=== PATIENT | male | born 1970 | race Caucasian/White ===

== ENCOUNTER 2017-02-17 02:01 | Inpatient (IN) | payer MEDICARE ==
--- NOTE | ~2017-02-17 | DS ---
Discharge Summary [id number] [place]. [address] NAME: GILBERTO CARMONA : [birth year] STATUS : DIS IN PAT#: [id number] AGE: 46 ADM/REG DATE : 02/17/17 MR#: [id number] REPORT SERV DATE: 02/23/17 DICTATED BY: TANA SANTACRUZ DATE: 02/22/17 REPORT STATUS : Draft TRANSCRIBED BY: JOLLY DATE: 02/22/17 ADMISSION DATE: 02/17/2017 DISCHARGE DATE: 02/22/2017 NOTE. DATE OF : 02/22/2017. INDICATION FOR HOSPITALIZATION: Shortness of breath. DISCHARGE DIAGNOSES: 1. Acute hypoxemic respiratory failure. 2. Bilateral pleural effusions with new left pleural effusion. 3. End-stage renal disease, dialyzing Thursday, , and Thursday at [facility]. 4. Type 2 diabetes mellitus. 5. Status post decortication and VATS procedure on left lung with chest tube drainage. 6. Recent right chest tube drainage. 7. Cardiac arrest with induction of analgesics for chest tube. 8. History of hypertension. 9. Hypothyroidism. 10.Dyslipidemia. 11.Psoriasis. 12.Coronary artery disease. 13.Peripheral neuropathy. 14.Remote coronary artery bypass grafting. 15.Remote left eye enucleation. 16.Encephalopathy. HOSPITAL COURSE: Mr. Carmona was a 46-year-old male with multiple medical problems, dialyzing Thursday, , and Thursday at [facility]. 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 He apparently went to dialysis on Thursday of last week, but missed subsequent treatments. He was noted to be hypoxemic on his ABG with bilateral pleural effusions and pulmonary edema. He was admitted for further evaluation. He underwent acute hemodialysis with aggressive ultrafiltration at time of admission. He seemed to improve slightly with this intervention. He was subsequently seen by Pulmonary to evaluate the new onset right-sided pleural effusion. He previously had VATS procedure for left pleural effusion and talc pleurodesis for the chylothorax. He was felt to need drainage of the right pleural effusion and it was elected to perform chest tube insertion by Dr. Putnam. At the time of the procedure, he did have a period of asystole and underwent approximately 30 to 60 seconds of a code procedure and was resuscitated. He was monitored in the unit for two days, then went to the floor with this. He became more withdrawing and less interactive. Discussion was had with his who indicates that she had previously discussed things with her and wanted to have no aggressive care. She felt that he was dying. Discharge Summary [address] [address] NAME: GILBERTO CARMONA : [birth year] STATUS : DIS IN PAT#: [id number] AGE: 46 ADM/REG DATE : 02/17/17 MR#: [id number] REPORT SERV DATE: 02/23/17 DICTATED BY: TANA SANTACRUZ DATE: 02/22/17 REPORT STATUS : Draft TRANSCRIBED BY: JOLLY DATE: 02/22/17 The patient was seen by Neurology on 02/21/2017 and this was to assess his worsening mental status. ABG was performed with pO2 of less than 60 and a pCO2 of 58. The patient was also episodically hypoglycemic. He did not eat and was receiving no pain medications. He would arouse, but there was no other activity. Following discussion with his , he was made a DNR. He further declined and on 02/22/2017. DICTATED BY: Owen Kline/JOLLY Tana Santacruz M.D. / [id number] CC: Tim Diana M.D.
--- NOTE | ~2017-02-17 | EGD ---
EGD REPORT [facility] [address] [address] NAME: MIGUEL CARMONA : 68 STATUS : DIS IN PAT#: [id number] AGE: 46 ADM/REG DATE : 02/17/17 MR#: [id number] REPORT SERV DATE: 03/25/17 DICTATED BY: LAKEISHA MARTINEZ DATE: 03/25/17 REPORT STATUS : Draft TRANSCRIBED BY: [facility] DATE: 03/25/17 Pulmonology Patient Name: Miguel Carmona Procedure Date: 02/19/2017 3:17 PM Date of : 1970 Attending MD: NADIA MARTINEZ MD Procedure Date No Time: 02/19/2017 Procedure: Chest Tube Placement Indications: Large right sided pleural effusion Providers: NADIA MARTINEZ MD Referring MD: TANA CABRERA Medicines: Intradermal lidocaine 2% with epinephrine 1:100,000 20 mls. See anesthesia record Complications: PEA arrest requiring chest compressions Procedure: Pre-Anesthesia Assessment: - A History and Physical has been performed. Patient meds and allergies have been reviewed. The risks and benefits of the procedure and the sedation options and risks were discussed with the patient. All questions were answered and informed consent was obtained. Patient identification and proposed procedure were verified prior to the procedure by the physician and the nurse in the pre-procedure area in the procedure room. Mental Status Examination: alert and oriented. Airway Examination: normal oropharyngeal airway. Respiratory Examination: clear to auscultation. CV Examination: normal and RRR, no murmurs, no S3 or S4. ASA Grade Assessment: IV - A patient with severe systemic disease that is a constant threat to life. After reviewing the risks and benefits, the patient was deemed in satisfactory condition to undergo the procedure. The anesthesia plan was to use monitored anesthesia care (MAC). Immediately prior to administration of medications, the patient was re-assessed for adequacy to receive sedatives. The heart rate, respiratory rate, oxygen saturations, blood pressure, adequacy of pulmonary ventilation, and response to care were monitored throughout the procedure. The physical status of the patient was re-assessed after the procedure. After consent was obtained, The procedure was accomplished with ease. Findings: After consent was obtained, a time out was performed. The patient was placed in the left lateral decubitus position with the ipsilateral arm above the patient's head. The patient was sedated by anesthesia, with EGD REPORT [address] [address] NAME: MIGUEL CARMONA : 68 STATUS : DIS IN PAT#: [id number] AGE: 46 ADM/REG DATE : 02/17/17 MR#: [id number] REPORT SERV DATE: 03/25/17 DICTATED BY: LAKEISHA MARTINEZ DATE: 03/25/17 REPORT STATUS : Draft TRANSCRIBED BY: [facility] DATE: 03/25/17 conscious sedation and ultrasound survey was performed with identification of pleural fluid and surrounding structures including the diaphragm and lung tissue. Ultrasound image interpretation: The depth to the chest wall is approximately 2 cms. The depth of the pocket is approximately 6 cms. Ultrasound images were permanently documented. The site of entry was m arked using ultrasound guidance. After donning cap, mask, sterile gown and gloves, the patient was prepped with chlorhexadine and drapped. 15 ccs of 2% lidocaine with epinephrine 1:100,000 was used to numb the region. A finder needle was then used to locate fluid with aspiration of serosanguinous fluid. A guide wire was placed into the pleural space followed by serial dilation using Seldinger technique. A 16 Portuguese chest tube was then advanced over the guide wire into the pleural space to a level of 2 cm at the skin. The skin was approximated first, via 3-0 silk sutures with simple interrupted ties and then a Meza hitch was performed to secure the tube. The tube was then placed to suction. Sterile gauze was placed at the skin junction and covered with sterile 4x4's. The site was then taped and secured with a multi-purpose medical tube perez. The pleuravac was checked and no air leak indicated. A total of 1400 ccs of serosanguinous fluid was aspirated. The catheter was then secured using 3.0 silk and a dressing was applied. Impression: Right sided chest tube with ultrasound guidance A total of 1400 ccs of serosanguinous fluid was aspirated. Recommendation: 1. Post-procedure stat portable chest x-ray 2. Place patient on -20 cm H20 suction 3. Fluid was sent for diagnostic studies 4. Transfer to critical care. 5. Patient's and Dr. Cabrera Attending Participation: I personally performed the entire procedure. NADIA MARTINEZ MD 02/19/2017 3:26 PM This report has been signed electronically. Number of Addenda: 0 Note Initiated On: 02/19/2017 3:17 PM [address] [address]
--- NOTE | ~2017-02-17 | EGD ---
EGD REPORT [facility] [address] [address] NAME: MIGUEL CARMONA : 68 STATUS : DIS IN PAT#: [id number] AGE: 46 ADM/REG DATE : 02/17/17 MR#: [id number] REPORT SERV DATE: 03/25/17 DICTATED BY: LAKEISHA MARTINEZ DATE: 03/25/17 REPORT STATUS : Draft TRANSCRIBED BY: [email or web address] DATE: 03/25/17 Pulmonology Patient Name: Miguel Carmona Procedure Date: 02/19/2017 3:17 PM Date of : 1970 Attending MD: NADIA MARTINEZ MD Procedure Date No Time: 02/19/2017 Procedure: Chest Tube Placement Indications: Large right sided pleural effusion Providers: NADIA MARTINEZ MD Referring MD: TANA CABRERA Medicines: Intradermal lidocaine 2% with epinephrine 1:100,000 20 mls. See anesthesia record Complications: PEA arrest requiring chest compressions Procedure: Pre-Anesthesia Assessment: - A History and Physical has been performed. Patient meds and allergies have been reviewed. The risks and benefits of the procedure and the sedation options and risks were discussed with the patient. All questions were answered and informed consent was obtained. Patient identification and proposed procedure were verified prior to the procedure by the physician and the nurse in the pre-procedure area in the procedure room. Mental Status Examination: alert and oriented. Airway Examination: normal oropharyngeal airway. Respiratory Examination: clear to auscultation. CV Examination: normal and RRR, no murmurs, no S3 or S4. ASA Grade Assessment: IV - A patient with severe systemic disease that is a constant threat to life. After reviewing the risks and benefits, the patient was deemed in satisfactory condition to undergo the procedure. The anesthesia plan was to use monitored anesthesia care (MAC). Immediately prior to administration of medications, the patient was re-assessed for adequacy to receive sedatives. The heart rate, respiratory rate, oxygen saturations, blood pressure, adequacy of pulmonary ventilation, and response to care were monitored throughout the procedure. The physical status of the patient was re-assessed after the procedure. After consent was obtained, The procedure was accomplished with ease. Findings: After consent was obtained, a time out was performed. The patient was placed in the left lateral decubitus position with the ipsilateral arm above the patient's head. The patient was sedated by anesthesia, with EGD REPORT [address] [address] NAME: MIGUEL CARMONA : [birth year] STATUS : DIS IN PAT#: [id number] AGE: 46 ADM/REG DATE : 02/17/17 MR#: [id number] REPORT SERV DATE: 03/25/17 DICTATED BY: LAKEISHA MARTINEZ DATE: 03/25/17 REPORT STATUS : Draft TRANSCRIBED BY: [email or web address] DATE: 03/25/17 conscious sedation and ultrasound survey was performed with identification of pleural fluid and surrounding structures including the diaphragm and lung tissue. Ultrasound image interpretation: The depth to the chest wall is approximately 2 cms. The depth of the pocket is approximately 6 cms. Ultrasound images were permanently documented. The site of entry was m arked using ultrasound guidance. After donning cap, mask, sterile gown and gloves, the patient was prepped with chlorhexadine and drapped. 15 ccs of 2% lidocaine with epinephrine 1:100,000 was used to numb the region. A finder needle was then used to locate fluid with aspiration of serosanguinous fluid. A guide wire was placed into the pleural space followed by serial dilation using Seldinger technique. A 16 Romanian chest tube was then advanced over the guide wire into the pleural space to a level of 2 cm at the skin. The skin was approximated first, via 3-0 silk sutures with simple interrupted ties and then a Meza hitch was performed to secure the tube. The tube was then placed to suction. Sterile gauze was placed at the skin junction and covered with sterile 4x4's. The site was then taped and secured with a multi-purpose medical tube perez. The pleuravac was checked and no air leak indicated. A total of 1400 ccs of serosanguinous fluid was aspirated. The catheter was then secured using 3.0 silk and a dressing was applied. Impression: Right sided chest tube with ultrasound guidance A total of 1400 ccs of serosanguinous fluid was aspirated. Recommendation: 1. Post-procedure stat portable chest x-ray 2. Place patient on -20 cm H20 suction 3. Fluid was sent for diagnostic studies 4. Transfer to critical care. 5. Patient's and Dr. Cabrera Attending Participation: I personally performed the entire procedure. NADIA MARTINEZ MD 02/19/2017 3:26 PM This report has been signed electronically. Number of Addenda: 0 Note Initiated On: 02/19/2017 3:17 PM [address] [address]
--- NOTE | ~2017-02-17 | CN ---
Consultation Report [facility] [address] [place]. [address] NAME: GILBERTO TORRES : [birth year] STATUS : ADM IN PAT#: [id number] AGE: 46 ADM/REG DATE : 02/17/17 MR#: [id number] REPORT SERV DATE: 02/21/17 DICTATED BY: DATE: REPORT STATUS : Draft TRANSCRIBED BY: MODL DATE: 02/21/17 NEUROLOGY CONSULTATION DATE OF CONSULTATION: 02/21/2017 REASON FOR CONSULT: Encephalopathy. HISTORY OF PRESENT ILLNESS: This is a 46-year-old male, presented to [facility] on 02/17/2017, secondary to shortness of breath. The patient was noted to have a history of pulmonary fusion, and a history of cough paracentesis in the past. He was briefly admitted to the ICU with respiratory status stabilized and subsequently transferred out of the ICU. The patient was noted to have progressive worsening of mental status as well as respiratory issue. With the patient noted to have most recent ABG pCO2 of 58 and PO2 of less than 60. The patient's mental status was noted to be progressive throughout the day. Otherwise, the patient was not noted to have any recent fevers. Prior to the hospitalization, no recent complaint was otherwise voiced. PAST MEDICAL HISTORY: Significant for end-stage renal disease, history of a pleural effusion, type 2 diabetes, hypertension, hypothyroidism, hyperlipidemia, history of a neuropathy, history of congestive heart failure, current EF is apparently 50% to 55%, coronary artery disease, status post bypass, as well as psoriasis, the patient does have left enucleation, as well as right hip surgery. ALLERGIES: THE PATIENT WAS NOTED TO HAVE ALLERGY TO MORPHINE. SOCIAL HISTORY: The patient was noted to have no tobacco, alcohol, or recreational drug usage. FAMILY HISTORY: No family history of end-stage renal disease, or respiratory issue was otherwise reported. REVIEW OF SYSTEMS: Unable to be obtained, secondary to patient's current mental status at the time of evaluation. CURRENT MEDICATIONS: Coreg, DuoNeb, Levemir, Lipitor, Maxipen, NovoLog, PhosLo, as well as Bactroban. PHYSICAL EXAMINATION: VITAL SIGNS: Overnight, the patient was noted to have vital signs with T-max of 98.6, heart rate of 75 to 95, respirations of 12 to 22, and blood pressure of 91 to 129/55 to 77. GENERAL: The patient is well-developed, well-nourished, in no acute distress. CARDIOVASCULAR: Regular rate and rhythm. No carotid bruits were auscultated. LUNGS: The patient was noted to have wheezing without stethoscope, and was noted to have Consultation Report [id number] [place]. [address] NAME: GILBERTO TORRES : [birth year] STATUS : ADM IN [facility]#: [id number] AGE: 46 ADM/REG DATE : 02/17/17 MR#: [id number] REPORT SERV DATE: 02/21/17 DICTATED BY: DATE: REPORT STATUS : Draft TRANSCRIBED BY: MODL DATE: 02/21/17 wheezing, as well as crackles in bilateral lung rizo. NEUROLOGIC: The patient was unresponsive. He was not following commands. He was nonverbal. Staring off into the space. The patient was noted to have the right pupil mildly irregular, non-reactive to light. With the patient's left eye to be enucleated. The patient was noted to have dysconjugate gaze. Horizontal eye movement was noted at time of evaluation. No blink to threat response was seen. Facial expression appeared to be roughly symmetric. The patient does demonstrate some flexor posturing to noxious stimulation to sternal rub. Otherwise, some trace withdrawal to noxious stimulation in bilateral upper and lower extremity at the time of evaluation. Deep tendon reflex was otherwise diminished throughout. Gait and cerebellar examination is unable to be evaluated. The patient remains in light coma, was unarousable at the time of evaluation. LABORATORY STUDIES: Demonstrated white blood cell count of 9.9, hemoglobin of 13.4, hematocrit of 45.9 and platelet count of 137. Chemistry panel: Sodium 142, potassium 5.1, chloride 105, bicarb of 26, BUN of 72, creatinine of 8.09, glucose of 45, calcium of 7.6, and magnesium of 2.1. IMPRESSION: Encephalopathy. The patient was noted to have poor respiratory status, encephalopathy is likely secondary to respiratory issue, most recent CT scan of the brain demonstrated no acute process. Further diagnostic studies such as MRI is an unlikely to help the patient's overall prognosis. Dr. Santacruz has already discussed with the family members. At this time, we are not recommending any further or any aggressive diagnostic or therapeutic evaluations. We will keep the patient comfortable and maintain current level of care. RECOMMENDATION: 1. Supportive and comfort care. 2. We will sign off. Call with questions. LUIS FELIPE/JOLLY Reinier Nickerson MD / [id number] CC: Tim Diana M.D.
--- NOTE | ~2017-02-17 | CN ---
Consultation Report [facility] [address] [facility] [address] [place]. [address] NAME: MIGUEL CARMONA : 68 STATUS : ADM IN PAT#: [id number] AGE: 46 ADM/REG DATE : 02/17/17 MR#: [id number] REPORT SERV DATE: 02/18/17 DICTATED BY: DANIELLE MARTINEZ DATE: 02/18/17 REPORT STATUS : Draft TRANSCRIBED BY: JOLLY DATE: 02/18/17 CONSULTATION DATE OF CONSULTATION: Dear Cathy Willett: Thank you for requesting my opinion regarding evaluation and management of Mr. Miguel Carmona's right-sided pleural effusion. Mr. Carmona is a pleasant 46-year-old gentleman with significant past medical history of end-stage renal disease, on dialysis; left-sided VATS pleural effusion; and talc poudrage for chylous effusion; heart failure; previous echocardiogram 50 to 55; and coronary artery bypass graft surgery, who presents to [facility] with worsening shortness of breath. He characterizes his shortness of breath as moderate in nature, well localized to the chest, nonradiating, with no significant alleviating or exacerbating factors. He denies any fevers, chills, night sweats, or constitutional symptoms that suggest an infection. REVIEW OF SYSTEMS: A detailed 14-point review of systems was completed. Pertinent positives and negatives are listed above. PAST MEDICAL HISTORY: 1. Severe psoriasis. 2. End-stage renal disease. 3. Type 2 diabetes. 4. Chronic sinus issues. 5. Hypertension. 6. Hypothyroidism. 7. Hyperlipidemia. 8. Neuropathy. 9. EF of 50% to 55%. 10.Coronary artery disease, status post CABG in 2016. 11.Left eye enucleation. 12.Right hip surgery. PAST SURGICAL HISTORY: 1. As above. 2. VATS poudrage by Dr. Castillo Carmona. ALLERGIES: MORPHINE. HOME MEDICATIONS: Reviewed and located in the paper chart. SOCIAL HISTORY: The patient is . Lives with his . He has no history of alcohol or tobacco abuse. Consultation Report [facility] [address] [facility] [place]. [address] NAME: MIGUEL CARMONA : [birth year] STATUS : ADM IN PAT#: [id number] AGE: 46 ADM/REG DATE : 02/17/17 MR#: [id number] REPORT SERV DATE: 02/18/17 DICTATED BY: DANIELLE MARTINEZ DATE: 02/18/17 REPORT STATUS : Draft TRANSCRIBED BY: JOLLY DATE: 02/18/17 FAMILY HISTORY: End-stage renal disease. PHYSICAL EXAMINATION: VITAL SIGNS: Afebrile, T current of 98, pulse of 82, respiratory rate of 14, 5 L nasal cannula 94%, blood pressure 114/56. GENERAL: No acute distress. Able to communicate in full paragraphs at a time. HEENT: Normocephalic and atraumatic. Pupils are equal, round, and reactive to light and accommodation. Posterior oropharynx is clear. NECK: No JVD. No LAD. Trachea midline. CARDIOVASCULAR: Regular rate and rhythm. S1 and S2 present. LUNGS: Coarse bilateral breath sounds. Diminished on the right. Dull to percussion. ABDOMEN: Nontender. Nondistended. Soft. Positive bowel sounds. SKIN: Innumerable plaques of psoriasis located nearly on all of his body with excoriations and bleeding from likely scratching. NEUROLOGIC: 5/5 strength in upper and lower extremities. Cranial nerves 2 through 12 intact. Gait not tested. DTRs not performed. LABORATORY DATA: Normal white count, hemoglobin of 12.9, platelet count of 158. Procalcitonin is elevated at 2.23 and troponin elevated. Chest CT without contrast on 02/18/2017, large right-sided pleural effusion. This chest CT was personally reviewed by me and I agree with the above interpretation. ASSESSMENT AND PLAN: Mr. Miguel Carmona is a pleasant 46-year-old gentleman with a significant past medical history of left-sided chylous effusion, status post VATS poudrage by Dr. Magdi Carmona; coronary artery disease, status post CABG in 2016; end-stage renal disease, on dialysis, who presents with a large right-sided pleural effusion and worsening shortness of breath. The patient may have contralateral chylous effusion developing. Given the size of the pleural effusion, we discussed potential options including thoracentesis, chest tube placement, or directed VATS poudrage. After careful discussion of the risks, benefits, and alternatives to each of these procedures, we agreed to proceed forward with left-sided chest tube placement. We will make sure that we obtain fluid and send it for further analysis. Further recommendations will be based on response to chest tube drainage and Light's criteria, and we will make certain that we check for triglycerides as well as to rule out a chylous effusion. The patient does not have any clear signs of yellow nail syndrome or history of lymphoma. Thank you for allowing me to participate in Mr. Miguel Carmona's care. Sincerely, Consultation Report [address] [place]. [address] NAME: MIGUEL CARMONA : 68 STATUS : ADM IN PAT#: [id number] AGE: 46 ADM/REG DATE : 02/17/17 MR#: [id number] REPORT SERV DATE: 02/18/17 DICTATED BY: DANIELLE MARTINEZ DATE: 02/18/17 REPORT STATUS : Draft TRANSCRIBED BY: JOLLY DATE: 02/18/17 FADIA/JOLLY Danielle Martinez M.D. / [id number] CC: Tim Diana M.D.
--- NOTE | ~2017-02-17 | HP ---
History And Physical [address] [place]. [address] NAME: GILBERTO TORRES : 68 STATUS : ADM Gomez PAT#: [id number] AGE: 46 ADM/REG DATE : 02/17/17 MR#: [id number] REPORT SERV DATE: 02/17/17 DICTATED BY: DATE: REPORT STATUS : Draft TRANSCRIBED BY: MODL DATE: 02/17/17 DATE OF ADMISSION: 02/17/2017 CHIEF COMPLAINT: Shortness of breath. HISTORY OF PRESENT ILLNESS: Mr. Torres is a 46-year-old white male with multiple medical problems including end-stage renal disease, dialyzes on Thursday, , and Thursday in [place]. He has a history of pleural effusion status post VATS in October. He presents to the hospital with shortness of breath yesterday evening. After only going to dialysis one time last week on Thursday, he states that he was moving and did not have a way to get to dialysis and had not made arrangements to do so. In the emergency department, he was found to be significantly hypoxic on his ABG with bilateral pleural effusions and pulmonary edema, and given all this, he has been admitted for further evaluation. Also of note, he had a troponin elevation at 0.3, but when I looked through the records, it looks like it is chronically elevated around 0.2 during last hospitalization. His last EF was recorded at 50% to 55%. He denies any chest pain, tightness, or pressure. No fevers, chills, cough, or congestion. Shortness of breath is actually better today with just O2. PAST MEDICAL HISTORY: End-stage renal disease, pleural effusion, type 2 diabetes, hypertension, hypothyroidism, hyperlipidemia, neuropathy; CHF, EF had previously been 40, but last checked, was up to 50 to 55; coronary disease status post bypass in 2016; psoriasis; left eye enucleation; and right hip surgery. ALLERGIES: MORPHINE. MEDICATIONS AT HOME: Albuterol, Lipitor, Coreg, NovoLog, Lantus, Percocet, Aranesp. SOCIAL HISTORY: He is and lives with his . No tobacco or alcohol use. FAMILY MEDICAL HISTORY: Negative for end-stage renal disease. REVIEW OF SYSTEMS: A 12-point review of systems was obtained and is negative with the exception that in HPI. PHYSICAL EXAMINATION: VITAL SIGNS: Temp 98.4, blood pressure 149/70, pulse 110, respiratory rate 14, O2 sat is 90% on 4 L. GENERAL: This is a chronically ill-appearing white male. HEENT: Normocephalic. Left eye enucleation. Sclera is nonicteric to the right. Oral mucosa is dry. NECK: Supple. Carotids are brisk. Neck veins flat. No lymphadenopathy. LUNGS: Respirations are even and unlabored. Decreased throughout, left greater than right. HEART: Rate is regular. He does have a systolic murmur. No rub or gallop. ABDOMEN: Soft and nontender. Bowel sounds are active. No masses. No hepatosplenomegaly. No bruits. No CVA tenderness. BACK: Within normal limits. History And Physical [address] [address] NAME: GILBERTO TORRES : 68 STATUS : ADM Gomez PAT#: [id number] AGE: 46 ADM/REG DATE : 02/17/17 MR#: [id number] REPORT SERV DATE: 02/17/17 DICTATED BY: DATE: REPORT STATUS : Draft TRANSCRIBED BY: MODL DATE: 02/17/17 EXTREMITIES: No edema, cyanosis, or clubbing. SKIN: He has a psoriatic rash of his legs and arms. NEUROLOGIC: No focal deficits. Mood and affect are pleasant appropriate. PERTINENT LABS AND X-RAYS: WBC is 9, hemoglobin and hematocrit are 11 and 39, platelets are 128,000. Sodium 133, potassium 4.9, chloride 94, CO2 of 23, BUN of 89, creatinine 11.7, glucose 603, calcium 7.2, magnesium 2.3, troponin 0.33. His ABG revealed a pH of 7.22, pCO2 of 52, pO2 of 46, bicarb of 20. Chest x-ray by my read, he has a large left pleural effusion, moderate right pleural effusion. IMPRESSION: 1. Acute hypoxic respiratory failure. 2. End-stage renal disease. 3. Noncompliance to dialysis. 4. Bilateral pleural effusions. 5. Elevated troponin, acute on chronic. 6. History of coronary artery disease with bypass in 2016. PLAN: Admit, dialysis today, and challenge dry weight. Consult pulmonology for reconsideration of thoracentesis. Recheck troponin, consider Cardiology consultation if further elevation. Again, I discussed with the patient the importance of dialysis compliance. Further orders and recommendations pending clinical course. EUGENIA/JOLLY AURORA Norman / [id number] CC: Tim Diana M.D. UNKNOWN
[~2017-02-17 02:01] MED LIST: APRES25 PO; ARANESP IV; ARANESP60 IV; BACDS PO; BETIMOL0.5 % OPH; BISR PR; BP MED PO; CIP5 PO; COREG12 PO; COREG6 PO; COZAAR100 MG PO; CYCLOGYL OPH 1%2 ML OPH; DURICEF PO; ECONOPRED PL1 % OPH; EZFE 200200 MG PO; HALF81 PO; IODOSORB TOP; LANTUS SC; LANTUSCART SC; LEVEMIR SC; LIPITOR40 PO; LISINOPRIL40 MG PO; LORT7 PO; NITROSTAT0.4 MG SL; NORCO1 TA1 PO; NORV10 PO; NORV5 PO; NOVOLOG SC; NOVOPEN SC; PCET PO; PRIN20 PO; PROTONIX PO; SODBICAR10 PO; SYN.025B PO; SYN.05 PO; T PO; TIMOLOL MAL0.5 % OPH; VANCO500; VENTOLIN HFA INH; VITC500 PO; ZEMPLAR2 MCG/ML IV; ZESTORETIC1 TA1 PO; ZESTRIL10 MG PO; ZINC220C PO; ZYVOXPO PO; [UNRECOGNIZED DRUG - CODE]
[2017-02-17] MEDS ORDERED: COZAAR100 MG PO (10:59)
[2017-02-17] MEDS ORDERED: SODBICAR10 PO (10:59)
[2017-02-17 12:16] LABS: CK-MB 5.2 NG/ML; CKMB INDEX (NOT ORD) 11.6; TROPONIN I 0.34 NG/ML (<0.05); ULTRASENSITIVE TSH 9.27 MCIU/ML (0.358-3.740)
[2017-02-17 13:04] LABS: PROCALCITONIN 2.23 ng/mL (<0.5)
[2017-02-17 16:02] LABS: FREE T4 0.66 NG/DL (0.76-1.46)
[2017-02-18 05:35] LABS: HEMATOCRIT 42.2 % (40.0-51.0); HEMOGLOBIN 12.9 g/dL (13.6-17.8); MANUAL DIFF YES %; MEAN CORPUS HGB CONC 30.6 g/dL (32.0-36.0); MEAN CORPUSCULAR HEMOGLOB 28.5 pg (26.0-34.0); MEAN CORPUSCULAR VOLUME 93.4 fL (80-100); MEAN PLATELET VOLUME 11.3 fL (9.2-13.0); PLATELET COUNT 158 10/3/uL (150-400); RBC DISTRIBUTION WIDTH 16.6 % (12.0-16.0); RED CELL COUNT 4.52 10/6/uL (4.7-6.1); WHITE BLOOD CELLS 6.4 10/3/uL (4.5-10.5)
[2017-02-18 05:47] LABS: ALBUMIN 2.4 G/DL (3.5-5.0); CHLORIDE, SERUM 102 MMOL/L (96-112); CO2 (CARBON DIOXIDE) 26 MMOL/L (24-34); POTASSIUM, SERUM 5.3 MMOL/L (3.5-5.3); SODIUM, SERUM 139 MMOL/L (135-148)
[2017-02-18 05:51] LABS: BUN (BLOOD UREA NITROGEN) 66 MG/DL (6-23); CALCIUM, SERUM 8.4 MG/DL (8.5-10.4); CREATININE 8.71 MG/DL (0.70-1.30); GFR AFRICAN AMERICAN 8 ML/MIN (>=60); GFR NON AFRICAN AMERICAN 7 ML/MIN (>=60); GLUCOSE, SERUM 235 MG/DL (60-99); PHOSPHORUS, SERUM 8.7 MG/DL (2.5-4.5)
[2017-02-18 06:06] LABS: BAND NEUTROPHILS 4 %; LYMPHOCYTES 7 %; LYMPHOCYTES ABSOLUTE (CALC) 0.45 10/3/uL (0.67-4.30); MONOCYTES 4 %; MONOCYTES ABSOLUTE (CALC) 0.26 10/3/uL (0.21-1.20); PLATELET ESTIMATE ADQ (ADEQUATE); RBC MORPHOLOGY NORM (NORMAL); SEGMENTED NEUTROPHIL (0) 85 %; TOTAL NUCLEATED CELLS 100
[2017-02-18 18:36] LABS: INTERNATIONAL NORMAL RATI 1.2 UNITS (-); PARTIAL THROMBO TIME 27.6 SEC (22.5-37.2); PROTIME (NOT ORD) 14.9 SEC (12.0-14.5)
[2017-02-19 08:38] LABS: BASOPHILS 0 %; EOSINOPHILS 0 %; HEMATOCRIT 39.5 % (40.0-51.0); HEMOGLOBIN 12.1 g/dL (13.6-17.8); IMMATURE GRANULOCYTES 0.2 %; IMMATURE GRANULOCYTES ABSOLUTE 0.02 10/3/uL (0.0-0.11); LYMPHOCYTES 10.7 %; MANUAL DIFF NO %; MEAN CORPUS HGB CONC 30.6 g/dL (32.0-36.0); MEAN CORPUSCULAR HEMOGLOB 28.3 pg (26.0-34.0); MEAN CORPUSCULAR VOLUME 92.5 fL (80-100); MEAN PLATELET VOLUME 9.6 fL (9.2-13.0); MONOCYTES 9.4 %; MONOCYTES ABSOLUTE 0.79 10/3/uL (0.21-1.20); NEUTROPHILS 79.7 %; NEUTROPHILS ABSOLUTE 6.72 10/3/uL (2.02-8.40); PLATELET COUNT 134 10/3/uL (150-400); RBC DISTRIBUTION WIDTH 16.5 % (12.0-16.0); RED CELL COUNT 4.27 10/6/uL (4.7-6.1); WHITE BLOOD CELLS 8.4 10/3/uL (4.5-10.5)
[2017-02-19 08:58] LABS: ALBUMIN 2.4 G/DL (3.5-5.0); CALCIUM, SERUM 7.6 MG/DL (8.5-10.4); CHLORIDE, SERUM 105 MMOL/L (96-112); CO2 (CARBON DIOXIDE) 25 MMOL/L (24-34); PHOSPHORUS, SERUM 8.8 MG/DL (2.5-4.5); SODIUM, SERUM 142 MMOL/L (135-148)
[2017-02-19 08:59] LABS: BUN (BLOOD UREA NITROGEN) 90 MG/DL (6-23); CREATININE 9.88 MG/DL (0.70-1.30); GFR AFRICAN AMERICAN 6 ML/MIN (>=60); GFR NON AFRICAN AMERICAN 6 ML/MIN (>=60); GLUCOSE, SERUM 156 MG/DL (60-99)
[2017-02-19 17:34] LABS: BD FL LYMPH (NOT ORD) 44 %; BD FL SOURCE (NOT ORD) RIGHT PLEURAL FLUID; BF BASO (NOT OF) 0 %; BF LARGE MONONUCLEAR 24 %; BODY FLUID EOS (NOT ORD) 0 %; BODY FLUID SEG (NOT ORD) 32 %; GLUCOSE BODY FL (NOT ORD) 173 MG/DL; LDH BODY FLUID (NOT ORD) 88 U/L; PROTEIN BODY FLUID 3.5 G/DL
[2017-02-19 17:50] LABS: BF TOTAL CELL CT (NOT ORD 391 /MM3; BODY FLUID RBC (NOT ORD) 6243 /MM3
[2017-02-19 20:03] LABS: HEMOGLOBIN 13.8 g/dL (13.6-17.8)
[2017-02-19 20:04] LABS: HEMATOCRIT 46.2 % (40.0-51.0)
[2017-02-20 03:23] LABS: BASOPHILS 0 %; EOSINOPHILS 0.2 %; EOSINOPHILS ABSOLUTE 0.01 10/3/uL (0.0-0.53); HEMATOCRIT 42.9 % (40.0-51.0); HEMOGLOBIN 12.6 g/dL (13.6-17.8); IMMATURE GRANULOCYTES 0.2 %; IMMATURE GRANULOCYTES ABSOLUTE 0.01 10/3/uL (0.0-0.11); LYMPHOCYTES 18.6 %; LYMPHOCYTES ABSOLUTE 1.17 10/3/uL (0.67-4.30); MANUAL DIFF NO %; MEAN CORPUS HGB CONC 29.4 g/dL (32.0-36.0); MEAN CORPUSCULAR HEMOGLOB 28.2 pg (26.0-34.0); MEAN PLATELET VOLUME 10.5 fL (9.2-13.0); MONOCYTES 13.4 %; MONOCYTES ABSOLUTE 0.84 10/3/uL (0.21-1.20); NEUTROPHILS 67.6 %; NEUTROPHILS ABSOLUTE 4.25 10/3/uL (2.02-8.40); PLATELET COUNT 135 10/3/uL (150-400); RBC DISTRIBUTION WIDTH 16.4 % (12.0-16.0); RED CELL COUNT 4.47 10/6/uL (4.7-6.1); WHITE BLOOD CELLS 6.3 10/3/uL (4.5-10.5)
[2017-02-20 03:40] LABS: ALBUMIN 2.6 G/DL (3.5-5.0); CALCIUM, SERUM 7.4 MG/DL (8.5-10.4); CHLORIDE, SERUM 107 MMOL/L (96-112); CO2 (CARBON DIOXIDE) 29 MMOL/L (24-34); POTASSIUM, SERUM 4.7 MMOL/L (3.5-5.3); SODIUM, SERUM 144 MMOL/L (135-148)
[2017-02-20 03:49] LABS: BUN (BLOOD UREA NITROGEN) 54 MG/DL (6-23); CREATININE 6.75 MG/DL (0.70-1.30); GFR AFRICAN AMERICAN 10 ML/MIN (>=60); GFR NON AFRICAN AMERICAN 9 ML/MIN (>=60); GLUCOSE, SERUM 97 MG/DL (60-99); PHOSPHORUS, SERUM 7.6 MG/DL (2.5-4.5)
[2017-02-20 04:49] LABS: PROCALCITONIN 3.09 ng/mL (<0.5)
[2017-02-21 06:43] LABS: BASOPHILS 0 %; EOSINOPHILS 0.6 %; EOSINOPHILS ABSOLUTE 0.06 10/3/uL (0.0-0.53); HEMATOCRIT 45.9 % (40.0-51.0); HEMOGLOBIN 13.4 g/dL (13.6-17.8); IMMATURE GRANULOCYTES 0.2 %; IMMATURE GRANULOCYTES ABSOLUTE 0.02 10/3/uL (0.0-0.11); LYMPHOCYTES 10.2 %; LYMPHOCYTES ABSOLUTE 1.01 10/3/uL (0.67-4.30); MEAN CORPUS HGB CONC 29.2 g/dL (32.0-36.0); MEAN CORPUSCULAR VOLUME 95.8 fL (80-100); MEAN PLATELET VOLUME 10.8 fL (9.2-13.0); MONOCYTES 13.6 %; MONOCYTES ABSOLUTE 1.34 10/3/uL (0.21-1.20); NEUTROPHILS 75.4 %; NEUTROPHILS ABSOLUTE 7.44 10/3/uL (2.02-8.40); PLATELET COUNT 137 10/3/uL (150-400); RBC DISTRIBUTION WIDTH 16.3 % (12.0-16.0); RED CELL COUNT 4.79 10/6/uL (4.7-6.1); WHITE BLOOD CELLS 9.9 10/3/uL (4.5-10.5)
[2017-02-21 06:44] LABS: MANUAL DIFF NO %
[2017-02-21 06:55] LABS: ALBUMIN 2.7 G/DL (3.5-5.0); CALCIUM, SERUM 7.6 MG/DL (8.5-10.4); CHLORIDE, SERUM 105 MMOL/L (96-112); CO2 (CARBON DIOXIDE) 26 MMOL/L (24-34); POTASSIUM, SERUM 5.1 MMOL/L (3.5-5.3); SODIUM, SERUM 142 MMOL/L (135-148)
[2017-02-21 07:07] LABS: PHOSPHORUS, SERUM 8.4 MG/DL (2.5-4.5)
[2017-02-21 07:08] LABS: BUN (BLOOD UREA NITROGEN) 72 MG/DL (6-23); CREATININE 8.09 MG/DL (0.70-1.30); GFR AFRICAN AMERICAN 8 ML/MIN (>=60); GFR NON AFRICAN AMERICAN 7 ML/MIN (>=60); GLUCOSE, SERUM 45 MG/DL (60-99)
[2017-02-21 13:50] LABS: A/G RATIO 0.8 (0.7-1.9); ALKALINE PHOSPHATASE 82 U/L (45-117); GLOBULIN 3.4 G/DL (2.5-4.1); SGOT(AST) 15 U/L (5-40); SGPT(ALT) 8 U/L (5-65); TOTAL BILIRUBIN 0.5 MG/DL (0-1.2); TOTAL PROTEIN 6.1 G/DL (6.0-8.5)
[2017-02-22 06:32] LABS: BASOPHILS 0 %; EOSINOPHILS 0.1 %; EOSINOPHILS ABSOLUTE 0.01 10/3/uL (0.0-0.53); IMMATURE GRANULOCYTES 0.3 %; IMMATURE GRANULOCYTES ABSOLUTE 0.02 10/3/uL (0.0-0.11); LYMPHOCYTES 9.1 %; LYMPHOCYTES ABSOLUTE 0.73 10/3/uL (0.67-4.30); MEAN CORPUS HGB CONC 29.5 g/dL (32.0-36.0); MEAN CORPUSCULAR HEMOGLOB 28.2 pg (26.0-34.0); MEAN CORPUSCULAR VOLUME 95.6 fL (80-100); MEAN PLATELET VOLUME 10.9 fL (9.2-13.0); MONOCYTES 11.3 %; NEUTROPHILS 79.2 %; NEUTROPHILS ABSOLUTE 6.33 10/3/uL (2.02-8.40); PLATELET COUNT 106 10/3/uL (150-400)
[2017-02-22 06:49] LABS: HEMATOCRIT 28.1 % (40.0-51.0); RED CELL COUNT 2.94 10/6/uL (4.7-6.1)
[2017-02-22 06:50] LABS: HEMOGLOBIN 8.3 g/dL (13.6-17.8)
[2017-02-22 06:51] LABS: MANUAL DIFF NO %
[2017-02-22 06:53] LABS: ALBUMIN 2.4 G/DL (3.5-5.0); BUN (BLOOD UREA NITROGEN) 45 MG/DL (6-23); CALCIUM, SERUM 7.6 MG/DL (8.5-10.4); CHLORIDE, SERUM 106 MMOL/L (96-112); CO2 (CARBON DIOXIDE) 27 MMOL/L (24-34); CREATININE 6.06 MG/DL (0.70-1.30); GFR AFRICAN AMERICAN 12 ML/MIN (>=60); GFR NON AFRICAN AMERICAN 10 ML/MIN (>=60); GLUCOSE, SERUM 82 MG/DL (60-99); PHOSPHORUS, SERUM 8.2 MG/DL (2.5-4.5); POTASSIUM, SERUM 4.9 MMOL/L (3.5-5.3); SODIUM, SERUM 143 MMOL/L (135-148)
== END 2017-02-22 14:32 | disposition expired | DRG 189 ==
LOC: 2SO 02:01 → CCU 02-19 14:58 → 2SO 02-20 17:00
PROVIDERS: Internal Medicine; Internal Medicine Nephrology; Internal Medicine Pulmonary Disease; Nurse Practitioner
PROC: 0W9930Z Drainage of Right Pleural Cavity with Drainage Device, Percutaneous Approach (ICD-10-PCS; 2017-02-19)
PROC: 5A12012 Performance of Cardiac Output, Single, Manual (ICD-10-PCS; 2017-02-19)
PROC: 5A1D60Z (ICD-10-PCS; principal; 2017-02-21)
DX: J96.01 Acute respiratory failure with hypoxia (principal); G93.41 Metabolic encephalopathy; I13.2 Hypertensive heart and chronic kidney disease with heart failure and with stage 5 chronic kidney disease, or end stage renal disease; N18.6 End stage renal disease; J90 Pleural effusion, not elsewhere classified; J44.1 Chronic obstructive pulmonary disease with (acute) exacerbation; I50.32 Chronic diastolic (congestive) heart failure; N48.1 Balanitis; I46.9 Cardiac arrest, cause unspecified; E11.22 Type 2 diabetes mellitus with diabetic chronic kidney disease; Z66 Do not resuscitate; R00.1 Bradycardia, unspecified; E03.9 Hypothyroidism, unspecified; E78.5 Hyperlipidemia, unspecified; E11.42 Type 2 diabetes mellitus with diabetic polyneuropathy; I25.10 Atherosclerotic heart disease of native coronary artery without angina pectoris; L40.9 Psoriasis, unspecified; Z99.2 Dependence on renal dialysis; Z95.1 Presence of aortocoronary bypass graft; Z90.01 Acquired absence of eye; Z91.15 Patient's noncompliance with renal dialysis; Z88.5 Allergy status to narcotic agent; E11.65 Type 2 diabetes mellitus with hyperglycemia; I25.2 Old myocardial infarction; R00.0 Tachycardia, unspecified; R79.89 Other specified abnormal findings of blood chemistry; Z79.4 Long term (current) use of insulin; Z79.891 Long term (current) use of opiate analgesic; Z79.899 Other long term (current) drug therapy
CPT/HCPCS: 36600; 70450; 71010; 71250; 80048; 80053; 80069; 82330; 82533; 82550; 82553; 82803; 82805; 82945; 82947; 82962; 83605; 83615; 83735; 83880; 83986; 84132; 84145; 84157; 84295; 84439; 84443; 84484; 85014; 85018; 85025; 85610; 85730; 87015; 87070; 87102; 87116; 87205; 87641; 88112; 88305; 89051; 93005; 94640; 96374; 96375; 99291; A9270-GY; G0257; J0692; J2370; J2930; J3370; P9047